=== PATIENT | male | born 1995 | race Caucasian/White ===

== ENCOUNTER 2017-07-03 13:42 | Emergency (ER) | payer OTHER ==
[2017-07-03 14:04] VITALS: BP 118/66; PULSE 94; TEMP 98; BMI 33.2
--- NOTE | 2017-07-03 15:07 | PDOC ---
History of Present Illness - General Chief Complaint: Choking Sensation Stated Complaint: CHOKING Time Seen by Provider: 07/03/17 14:33 Past History - Past Medical History Allergies/Adverse Reactions: Allergies Allergy/AdvReac Type Severity Reaction Status Date / Time No Known Allergies Allergy Verified 07/03/17 13:58 Home Medications: Ambulatory Orders Calcium Carbonate [Calcium] 600 mg PO DAILY 02/07/14 Cholecalciferol (Vitamin D3) [Vitamin D -] 2,000 unit PO DAILY 02/07/14 Diazepam Rectal Gel [Diastat Rectal Gel -] 20 mg [place] ONCE PRN 02/07/14 Lacosamide [Vimpat -] 200 mg PO BID 02/07/14 Levetiracetam 900 mg PO BID 02/07/14 Levothyroxine [Synthroid -] 88 mcg PO DAILY 02/07/14 Pyridoxine HCl 100 mg PO DAILY 02/07/14 Acetaminophen [Tylenol] 650 mg PO PRN 06/19/14 Clonazepam 2 mg PO DAILY PRN 06/19/14 Lacosamide [Vimpat -] 100 mg PO BID 06/19/14 Loperamide HCl [Loperamide] 2 mg PO Q4H PRN 06/19/14 Mineral Oil/Hydrophil Petrolat [Aquaphor Ointment] 1 applic TP PRN 06/19/14 Nystatin Cream [Mycostatin] 1 applic TP BID 06/19/14 Pedi Multivit #22/Vit D3/Vit K [Multivitamins Chewables Tablet] 1 each PO DAILY 06/19/14 Talc/Cellulos/Chloroxy/Aldioxa [Zeasorb Powder] 1 applic TP BID 06/19/14 Levetiracetam 100 mg PO ASDIR 07/03/17 Loperamide HCl [Loperamide] 2 mg PO ASDIR 07/03/17 Perampanel [Fycompa] 4 mg PO ASDIR 07/03/17 Pyridoxine HCl 100 mg PO ASDIR 07/03/17 COPD: No GI Disorders: Yes (gerd) Psychiatric Problems: Yes (AGGRESSION.) Seizures: Yes Thyroid Disease: Yes (thyroid) Other medical history: TBI. ENCEPHALITIS. - Surgical History Neurologic Surgery: Yes (VNS PLACED 2008) - Immunization History Immunization Up to Date: Yes - Suicide/Smoking/Psychosocial Hx Smoking History: Never smoked Have you smoked in the past 12 months: No Hx Alcohol Use: No Drug/Substance Use Hx: No Substance Use Type: None *Physical Exam - Vital Signs Last Vital Signs Temp Pulse Resp BP Pulse Ox 98 F 94 H 18 118/66 98 07/03/17 13:58 07/03/17 13:58 07/03/17 13:58 07/03/17 13:58 07/03/17 13:58 ED Treatment Course - RADIOLOGY Radiology Studies Ordered: Category Date Time Status CHEST PA & LAT [RAD] Stat Radiology 07/03/17 14:12 Ordered *DC/Admit/Observation/Transfer Diagnosis at time of Disposition: Choking due to food (regurgitated) Qualifiers: Encounter type: initial encounter Qualified Code(s): T17.320A - Food in larynx causing asphyxiation, initial encounter - Discharge Dispostion Disposition: HOME Condition at time of disposition: Good Admit: No - Referrals Referrals: Hernan Mckinney MD [Staff Physician] - - Patient Instructions Printed Discharge Instructions: DI for Choking Episode Additional Instructions: Juliano had a choking episode. Please have him follow with either a speech pathologist or a GI doctor to have his swallowing evaluated. A GI consult has been provided. Please monitor him while eating. His x-ray was negative for residual food or aspiration. Return to the ED if he develops fevers, chills, SOB, cough or any changes in his symptoms. - Post Discharge Activity
== END 2017-07-03 15:46 | disposition home or self-care (01) ==
LOC: JERFT 13:42
DX: T17.320A Food in larynx causing asphyxiation, initial encounter (principal); X58.XXXA Exposure to other specified factors, initial encounter; Y93.89 Activity, other specified; Y92.118 Other place in children's home and orphanage as the place of occurrence of the external cause; Y99.8 Other external cause status; K21.9 Gastro-esophageal reflux disease without esophagitis; G40.909 Epilepsy, unspecified, not intractable, without status epilepticus; E03.9 Hypothyroidism, unspecified; Z87.820 Personal history of traumatic brain injury; F91.1 Conduct disorder, childhood-onset type
CPT/HCPCS: 71020-TC; 99281-25

== ENCOUNTER 2017-09-02 15:48 | Emergency (ER) | payer OTHER ==
[2017-09-02 16:22] VITALS: BP 144/75; PULSE 100; TEMP 99.2; BMI 32.6
--- NOTE | 2017-09-02 16:55 | PDOC ---
Attending Attestation - Resident Resident Name: Amaya Rubiogillian - ED Attending Attestation I have performed the following: I have examined & evaluated the patient, The case was reviewed & discussed with the resident, I agree w/resident's findings & plan, Exceptions are as noted - HPI HPI: 09/02/17 16:55 21y M hx of seizures s/p TBI, encephalitis, hypothyroidism, presents with complaint of recurrent seizures had 7 seizrues today and got a dose of klonapin at 11:40.seizures lasting from 20 sec to 2 minutes, and states he was more spacey - non focalneuro exam. pt does track me when i say his name, but per the aid with him, he has less attention span than usual. the aid who came on at 3pm has not seen him seize yet. will r/o organic cause of siezures including occult infection, metabolic dernagement, ct head will observe here whie we work him up will discuss with his neurolgist regarding dispo and possible med changes - Physicial Exam PE: 09/05/17 12:10 see above - Medical Decision Making after discussion with neurologist and PMD, plan was to observe the pt in the ED as it seems he is back to baseline mental status - if he has further seizures will transfer him to [facility] under care of his neurologist. if neg, will hvae pt fu with neuro as outpatient. suspect his delayed return to baseline menal status was due to the benzos on board he seems bcak to baseline on evaluation here in the ED. Heart Score/ECG Review - ECG Impressions Comment:: 09/02/17 18:03 Twelve-lead EKG was performed and reviewed by me. There is normal sinus rhythm with a normal rate. rate of 86 nos t changes suggestive of mi RSR in V2
[2017-09-02] MEDS ORDERED: DIAZEPAM ACUDIAL 12.5-15-20 20 MG KIT RC PRN (17:02)
[2017-09-02] MEDS ORDERED: levETIRAcetam 500 MG/5 ML ORAL SOLUTION (UNIT-DOSE CUPS) PO SCH (17:30)
[2017-09-02] MEDS ORDERED: LACOSAMIDE 50 MG TABLET PO SCH (17:30)
--- NOTE | 2017-09-02 17:51 | PDOC ---
History of Present Illness - General Chief Complaint: Seizure Stated Complaint: SEIZURE Time Seen by Provider: 09/02/17 16:54 - History of Present Illness Initial Comments: Pt is a 21yo M with PMHx of Epilepsy and Cognitive Deficits (nonverbal) who presented from [facility] due to breakthrough seizures. History was obtained from the chart, aid, and PCP. Patient had 9 seizures since 5am, between 20 seconds - 2 minutes. His vagus nerve stimulator was adjusted, and a dose of Klonopin was given, but the seizures persisted. Last seizure was 2.5 hrs ago. Since the seizures stopped, the patient appears more tired, not as interactive as baseline. Does not appear to be in pain, no vomiting, no diarrhea , no runny nose, no asymmetric changes. As per PCP, seizures were well controlled until a couple of months ago, frequency increased. Anti-epileptic meds recently adjusted 1 month ago. Past History - Past Medical History Allergies/Adverse Reactions: Allergies Allergy/AdvReac Type Severity Reaction Status Date / Time No Known Allergies Allergy Verified 09/02/17 16:21 Home Medications: Ambulatory Orders Calcium Carbonate [Calcium] 600 mg PO DAILY 02/07/14 Cholecalciferol (Vitamin D3) [Vitamin D -] 2,000 unit PO DAILY 02/07/14 Diazepam Rectal Gel [Diastat Rectal Gel -] 20 mg AL ONCE PRN 02/07/14 Lacosamide [Vimpat -] 200 mg PO BID 02/07/14 Levetiracetam 900 mg PO BID 02/07/14 Levothyroxine [Synthroid -] 88 mcg PO DAILY 02/07/14 Pyridoxine HCl (Vitamin B6) [Pyridoxine HCl] 100 mg PO DAILY 02/07/14 Acetaminophen [Tylenol] 650 mg PO PRN 06/19/14 Clonazepam 2 mg PO DAILY PRN 06/19/14 Lacosamide [Vimpat -] 100 mg PO BID 06/19/14 Loperamide HCl [Loperamide] 2 mg PO Q4H PRN 06/19/14 Mineral Oil/Hydrophil Petrolat [Aquaphor Ointment] 1 applic TP PRN 06/19/14 Nystatin Cream [Mycostatin] 1 applic TP BID 06/19/14 Pedi Multivit #22/Vit D3/Vit K [Multivitamins Chewables Tablet] 1 each PO DAILY 06/19/14 Talc/Cellulos/Chloroxy/Aldioxa [Zeasorb Powder] 1 applic TP BID 06/19/14 Levetiracetam 100 mg PO ASDIR 07/03/17 Loperamide HCl [Loperamide] 2 mg PO ASDIR 07/03/17 Perampanel [Fycompa] 4 mg PO ASDIR 07/03/17 Pyridoxine HCl (Vitamin B6) [Pyridoxine HCl] 100 mg PO ASDIR 07/03/17 COPD: No GI Disorders: Yes (gerd) Psychiatric Problems: Yes (AGGRESSION.) Seizures: Yes Thyroid Disease: Yes (thyroid) - Surgical History Neurologic Surgery: Yes (VNS PLACED 2008) - Immunization History Immunization Up to Date: Yes - Suicide/Smoking/Psychosocial Hx Smoking History: Never smoked Have you smoked in the past 12 months: No Information on smoking cessation initiated: No Hx Alcohol Use: No Drug/Substance Use Hx: No Substance Use Type: None *Physical Exam - Vital Signs Last Vital Signs Temp Pulse Resp BP Pulse Ox 99.2 F 100 H 18 144/75 100 09/02/17 15:48 09/02/17 15:48 09/02/17 15:48 09/02/17 15:48 09/02/17 15:48 - Physical Exam Comments: GEN: Awake, alert, but appears sleepy, nonverbal, but in no acute distress HEENT: NCAT, PERRLA, EOMi CV: S1, S2, RRR LUNG: difficult to hear due to non-cooperation, but grossly clear ABD: Soft, NT, ND, normoactive MSK: No edema, no erythema, rashes on arms are not new ED Treatment Course - LABORATORY CBC & Chemistry Diagram: 09/02/17 18:00 09/02/17 18:00 - RADIOLOGY Radiology Studies Ordered: Category Date Time Status HEAD CT WITHOUT CONTRAST [CT] Stat CT Scan 09/02/17 16:29 Ordered CHEST X-RAY PORTABLE* [RAD] Stat Radiology 09/02/17 16:29 Ordered Medical Decision Making - Medical Decision Making 09/02/17 17:54 Mr. Carter is a 21yo M with hx of epilepsy who presented with breakthrough seizures of unknown origin. No focal cause jayshree. Though patient is afebrile, cannot rule out underlying infectious cause. Will order CBC, CMP, UA, CXR, EKG. Will also order Head CT to r/o intracranial pathology. Change in mental status could be due to prolonged post-ictal state vs post benzodiazepine change vs infectious. 09/02/17 18:00 Spoke with SWETA Villa who stated that the patient should be worked up and monitored for more breakthrough seizures. If workup is negative and patient stops seizing, can send back to [facility]. If patient continues to seize regularly, will give IV Ativan and transfer to [place] to be under the care of Dr. Salcido. Inter-hospital transfer center number is [phone]. Dr Carranza (PCP at [facility]) [phone]. SWETA Villa for Dr. Salcido (Patient's Neurologist) [phone] 09/02/17 18:15 Patient had 15 second seizure, witnessed by aid and nurse Savana. Head turned to left, tremors on L arm and leg. Had not received 5:30 antiepileptics. Will give 5:30 meds and continue to monitor *DC/Admit/Observation/Transfer Diagnosis at time of Disposition: Seizure disorder - Referrals - Patient Instructions - Post Discharge Activity
[2017-09-02] MEDS ORDERED: LACOSAMIDE 50 MG TABLET PO ONE (18:25)
[2017-09-02 18:42] LABS: BASO % 0.5 % (0-2.0); EOS % 0.4 % (0-4.5); HEMATOCRIT 45.3 % (35.4-49); HEMOGLOBIN 14.8 GM/dL (11.7-16.9); LYMPH % 20.6 % (8-40); MCH 28.3 pg (25.7-33.7); MCHC 32.7 g/dl (32.0-35.9); MEAN CELL VOLUME 86.4 fl (80-96); MEAN PLT VOLUME 10.3 fl (7.5-11.1); MONO % 9.4 % (3.8-10.2); NEUT % 69.1 % (42.8-82.8); PLATELET COUNT 206 K/MM3 (134-434); RBC 5.24 M/mm3 (4.00-5.60); RDW 13.1 % (11.9-15.9); WHITE BLOOD COUNT 13.6 K/mm3 (4.0-10.0)
[2017-09-02 20:11] LABS: ALBUMIN 4.3 g/dl (3.4-5.0); ANION GAP 8 (8-16); BLOOD UREA NITROGEN 8 mg/dL (7-18); CALCIUM 9.2 mg/dL (8.5-10.1); CHLORIDE 103 mmol/L (98-107); CO2 30 mmol/L (21-32); CREATININE 0.7 mg/dL (0.7-1.3); GLUCOSE,RANDOM 80 mg/dL (74-106); SGPT/ALT 46 U/L (12-78); SODIUM 141 mmol/L (136-145)
[2017-09-02 20:12] LABS: ALK PHOS 110 U/L (45-117); TOT PROT 7.9 g/dl (6.4-8.2)
[2017-09-02 20:40] LABS: SGOT/AST 32 U/L (15-37)
--- NOTE | 2017-09-02 21:04 | PDOC ---
*Physical Exam - Vital Signs Last Vital Signs Temp Pulse Resp BP Pulse Ox 99.2 F 100 H 18 144/75 100 09/02/17 15:48 09/02/17 15:48 09/02/17 15:48 09/02/17 15:48 09/02/17 15:48 ED Treatment Course - LABORATORY CBC & Chemistry Diagram: 09/02/17 18:00 09/02/17 18:00 - ADDITIONAL ORDERS Additional order review: Laboratory Results 09/02/17 18:00 Sodium 141 Potassium 4.0 Chloride 103 Carbon Dioxide 30 Anion Gap 8 BUN 8 D Creatinine 0.7 Creat Clearance w eGFR > 60 Random Glucose 80 Calcium 9.2 Total Bilirubin 1.0 D AST 32 ALT 46 Alkaline Phosphatase 110 D Total Protein 7.9 Albumin 4.3 09/02/17 18:00 RBC 5.24 MCV 86.4 MCHC 32.7 RDW 13.1 MPV 10.3 Neutrophils % 69.1 D Lymphocytes % 20.6 D Monocytes % 9.4 Eosinophils % 0.4 D Basophils % 0.5 Medical Decision Making - Medical Decision Making Patient signed out to me pending labs, head CT, and CXR read. Labs all WNL with the exception of slight leukocytosis and CXR not demonstrating infection. Head CT not showing new or acute intracranial process. Will DC patient back to facility with instructions to continue using medication. 09/02/17 21:03 *DC/Admit/Observation/Transfer Diagnosis at time of Disposition: Seizure disorder - Discharge Dispostion Disposition: INTERMEDIATE FACILITY Condition at time of disposition: Improved Admit: No - Referrals - Patient Instructions Additional Instructions: You did not have anymore seizures for 4 hours under our observation. Your chest X ray and head CT did not show any issues or infection. Your labs were also unconcerning. Please take your anti seizure medications as instructed. Please return to the ED if you have any new seizures or other concerning symptoms. - Post Discharge Activity
--- NOTE | 2017-09-03 10:57 | EKG ---
Test Reason : Blood Pressure : / mmHG Vent. Rate : 086 BPM Atrial Rate : 086 BPM P-R Int : 142 ms QRS Dur : 094 ms QT Int : 374 ms P-R-T Axes : 079 063 057 degrees QTc Int : 447 ms NORMAL SINUS RHYTHM POSSIBLE LEFT ATRIAL ENLARGEMENT BORDERLINE ECG WHEN COMPARED WITH ECG OF 19-JUN-2014 19:57, NO SIGNIFICANT CHANGE WAS FOUND Confirmed by SMITH GOOD, BRANDY ([id number]) on 09/03/2017 10:57:06 AM Referred By: Confirmed By:BRANDY MTZ MD
== END 2017-09-03 01:55 ==
LOC: JER 15:48
DX: G40.909 Epilepsy, unspecified, not intractable, without status epilepticus (principal); R41.89 Other symptoms and signs involving cognitive functions and awareness; F99 Mental disorder, not otherwise specified; K21.9 Gastro-esophageal reflux disease without esophagitis; E07.9 Disorder of thyroid, unspecified
CPT/HCPCS: 36415; 70450-TC; 71045-TC; 80053; 85025; 93005; 93010; 99281-25

== ENCOUNTER 2019-10-10 12:54 | Emergency (ER) | payer OTHER ==
[2019-10-10 13:41] VITALS: BP 115/43; PULSE 80; TEMP 98.2; BMI 27.3
--- NOTE | 2019-10-10 14:05 | PDOC ---
History of Present Illness - General Chief Complaint: Rash Stated Complaint: RASH Time Seen by Provider: 10/10/19 13:43 History Source: Retirement Records ([facility]), Primary Care Provider Exam Limitations: No Limitations - History of Present Illness Initial Comments: 10/10/19 14:05 HISTORY OF PRESENT ILLNESS: 24-year-old male resident at [facility] who is been fully vaccinated who was sent by facility for evaluation of rash to the trunk. Multiple vaccinated residents at the facility have had positive PCR's for varicella. Facility physician is requesting PCR for varicella be collected and patient to be sent back to facility for monitoring. No recent travel or sick contacts. 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 No apparent distress , no intoxication. Lymphatic: No adenopathy, tenderness. Musculoskeletal/Extremities: Normal inspection. FROM of all extremities, normal capillary refill. Pelvis Stable. No CVA tenderness. No tenderness to extremities, pedal edema, swelling, erythema or deformity. Integumentary: Vesicular rash presents to the midline chest and back. Nondraining lesions present. Appearance is consistent with active varicella infection. Neurologic: licsw II-XII intact. Fully oriented, alert. Appropriate mood/affect. Motor strength 5/5. No appreciable EOM palsy, facial droop or sensory deficit. Past History - Past Medical History Allergies/Adverse Reactions: Allergies Allergy/AdvReac Type Severity Reaction Status Date / Time No Known Allergies Allergy Verified 10/10/19 13:39 Home Medications: Ambulatory Orders Calcium Carbonate [Calcium] 600 mg PO DAILY 02/07/14 Cholecalciferol (Vitamin D3) [Vitamin D -] 2,000 unit PO DAILY 02/07/14 Diazepam Rectal Gel [Diastat Rectal Gel -] 20 mg [place] ONCE PRN 02/07/14 Lacosamide [Vimpat -] 200 mg PO BID 02/07/14 Levetiracetam 2,000 mg PO BID 02/07/14 Levothyroxine [Synthroid -] 88 mcg PO DAILY 02/07/14 Pyridoxine HCl (Vitamin B6) [Pyridoxine HCl] 100 mg PO DAILY 02/07/14 Acetaminophen [Tylenol] 650 mg PO PRN PRN 06/19/14 Clonazepam 2 mg SL DAILY PRN 06/19/14 Lacosamide [Vimpat -] 100 mg PO BID 06/19/14 Pedi Multivit #22/Vit D3/Vit K [Multivitamins Chewables Tablet] 1 each PO DAILY 06/19/14 Perampanel [Fycompa] 4 mg PO HS 07/03/17 COPD: No GI Disorders: Yes (gerd) Psychiatric Problems: Yes (AGGRESSION.) Seizures: Yes Thyroid Disease: Yes (thyroid) - Surgical History Neurologic Surgery: Yes (VNS PLACED 2008) - Immunization History Immunization Up to Date: Yes - Psycho Social/Smoking Cessation Hx Smoking History: Never smoked Have you smoked in the past 12 months: No Hx Alcohol Use: No Drug/Substance Use Hx: No Substance Use Type: None *Physical Exam - Vital Signs Last Vital Signs Temp Pulse Resp BP Pulse Ox 98.2 F 80 20 115/43 L 99 10/10/19 13:39 10/10/19 13:39 10/10/19 13:39 10/10/19 13:39 10/10/19 13:39 Medical Decision Making - Medical Decision Making 10/10/19 13:46 A/P: 24-year-old autistic male for evaluation of active varicella infection Given multiple sick contacts with active varicella infection despite immunization and appearance of rash this is likely active varicella infection. Case has been discussed with Dr. Craranza who requests that varicella PCR be collected and child can return to facility for continued treatment for presumed varicella infection. Antiviral therapy was discussed with the primary doctor who agrees that this would not be indicated for this patient. Varicella PCR Discharge to [facility] 10/10/19 13:46 Discharge - Discharge Information Problems reviewed: Yes Clinical Impression/Diagnosis: Varicella exposure Condition: Stable Disposition: HOME - Admission No - Follow up/Referral CallBack Reminder: results - Patient Discharge Instructions Additional Instructions: Results of PCR will take multiple days as this is a send out test. Doctor Carranza is aware of the case and will continue treatment. No additional treatment here is indicated. Return to emergency department for any new or worsening symptoms. Thank you very much for choosing us to provide this child's emergent healthcare needs. - Post Discharge Activity
== END 2019-10-10 14:13 | disposition home or self-care (01) ==
LOC: JERFT 12:54
DX: B01.9 Varicella without complication (principal); G40.909 Epilepsy, unspecified, not intractable, without status epilepticus; K21.9 Gastro-esophageal reflux disease without esophagitis; E03.9 Hypothyroidism, unspecified; F91.1 Conduct disorder, childhood-onset type; Z87.820 Personal history of traumatic brain injury; Z96.82 Presence of neurostimulator
CPT/HCPCS: 36415; 86787; 99282-25

== ENCOUNTER 2020-04-19 13:35 | Emergency (ER) | payer OTHER ==
[2020-04-19 13:50] VITALS: TEMP 98.6; BMI 33.9
[2020-04-19 15:55] LABS: BASO % 0.7 % (0-2.0); EOS % 4.7 % (0-4.5); HEMATOCRIT 43.9 % (35.4-49); HEMOGLOBIN 14.4 GM/dL (11.7-16.9); LYMPH % 24.7 % (8-40); MCH 28.5 pg (25.7-33.7); MCHC 32.7 g/dl (32.0-35.9); MEAN CELL VOLUME 87.1 fl (80-96); MEAN PLT VOLUME 10.4 fl (7.5-11.1); MONO % 9.4 % (3.8-10.2); NEUT % 60.5 % (42.8-82.8); PLATELET COUNT 196 K/MM3 (134-434); RBC 5.04 M/mm3 (4.00-5.60); RDW 13.3 % (11.9-15.9); WHITE BLOOD COUNT 10.2 K/mm3 (4.0-10.0)
--- NOTE | 2020-04-19 16:07 | EKG ---
Test Reason : Blood Pressure : / mmHG Vent. Rate : 076 BPM Atrial Rate : 076 BPM P-R Int : 142 ms QRS Dur : 088 ms QT Int : 380 ms P-R-T Axes : 071 068 059 degrees QTc Int : 427 ms NORMAL SINUS RHYTHM NORMAL ECG WHEN COMPARED WITH ECG OF 02-SEP-2017 17:30, NO SIGNIFICANT CHANGE WAS FOUND Confirmed by MD GAGE MOYSES ([id number]) on 04/19/2020 4:07:21 PM Referred By: Confirmed By:HUMBERTO GAGE MD
--- NOTE | 2020-04-19 16:08 | PDOC ---
History of Present Illness - General Chief Complaint: Seizure Stated Complaint: Seizure Time Seen by Provider: 04/19/20 14:29 - History of Present Illness Initial Comments: HPI 24 yo M with PMH of cognitive deficits (non-verbal at baseline), epilepsy, GERD, and thyroid disease presenting from [facility] after pt had 4 seizure episodes this mornin) 7:30 AM - 45 s; subsided on own 2) 9:25 AM - 3 min 20 s - valium 20 mg IL administered @9:30 AM to break seizure 3) 10:50 AM - 1 min 20 s 4) 12:25 PM - 3 min - diastat administered Pt's seizures involved jerking movements of upper and lower extremities and twitching of mouth; pt known to sometimes become cyanotic during seizures. During the episodes today, he developed intermittent cyanosis and O2 was given. Nursing staff at [facility] reports that pt usually does not have any seizures after valium administration but today he had two more seizures. Pt also with vagal nerve stimulator on L upper back and responsive neurostimulator in R parietal. Pt has not had any fevers, chills, cough, wheezing, abdominal pain, weakness, nausea, vomiting, diarrhea, or constipation. According to [facility] nursing staff, at baseline pt is non-verbal, sitting upright, playing puzzles, active, and follows some commands. Pt is near his baseline currently, although not as active after anti-seizure medication administration at [facility]. He has had no further seizures while in the ED. PMHX: as in HPI PSHX: see below Meds: as per pt's chart from [facility] Allergies: nkda Tob:none Etoh: none Rec drugs: none PCP: Dr. Nancie Carranza; seen by neurologist - Dr. Gilman @ [facility] ([phone]) ROS unable to retrieve current ROS as pt is non-verbal at baseline PE GENERAL: Awake, alert, nonverbal in no acute distress HEAD: No signs of trauma, normocephalic, atraumatic EYES: PERRLA, EOMI, sclera anicteric, conjunctiva clear ENT: Auricles normal inspection, oropharynx clear without exudates. Moist mucosa NECK: Normal ROM, supple, no lymphadenopathy, JVD, or masses LUNGS: No distress, speaks full sentences, clear to auscultation bilaterally HEART: Regular rate and rhythm, normal S1 and S2, no murmurs, rubs or gallops, peripheral pulses normal and equal bilaterally. ABDOMEN: Soft, nondisted, normoactive bowel sounds. EXTREMITIES : Normal inspection, moving all extremities equally and spontaneously, no edema. NEUROLOGICAL: Pt non-verbal at baseline, able to ambulate with assistance; pt not following commands; no tonic-clonic movements SKIN: Warm, Dry, normal turgor, no rashes or lesions noted 04/19/20 15:40 Past History - Medical History Allergies/Adverse Reactions: Allergies Allergy/AdvReac Type Severity Reaction Status Date / Time No Known Allergies Allergy Verified 10/10/19 13:39 Home Medications: Ambulatory Orders Cholecalciferol (Vitamin D3) [Vitamin D -] 2,000 unit PO DAILY 02/07/14 Diazepam Rectal Gel [Diastat Rectal Gel -] 20 mg [place] ONCE PRN 02/07/14 Lacosamide [Vimpat -] 200 mg PO BID 02/07/14 Levetiracetam 1,000 mg PO BID 02/07/14 Levothyroxine [Synthroid -] 88 mcg PO DAILY 02/07/14 Pyridoxine HCl (Vitamin B6) [Pyridoxine HCl] 100 mg PO DAILY 02/07/14 Acetaminophen [Tylenol] 650 mg PO PRN PRN 06/19/14 Clonazepam 2 mg SL DAILY PRN 06/19/14 Lacosamide [Vimpat -] 100 mg PO BID 06/19/14 Pedi Multivit #22/Vit D3/Vit K [Multivitamins Chewables Tablet] 1 each PO DAILY 06/19/14 Perampanel [Fycompa] 4 mg PO HS 07/03/17 Bisacodyl [Laxative] 20 mg PO DAILY PRN 04/19/20 Loperamide HCl [Loperamide] 2 mg PO QID PRN 04/19/20 COPD: No GI Disorders: Yes (gerd) Psychiatric Problems: Yes (AGGRESSION.) Seizures: Yes Thyroid Disease: Yes (thyroid) - Surgical History Neurologic Surgery: Yes (VNS PLACED 2008) - Immunization History Immunization Up to Date: Yes - Psycho-Social/Smoking History Smoking History: Unknown if ever smoked Have you smoked in the past 12 months: No - Substance Abuse Hx (Audit-C & DAST Scrn) How often the patient has a drink containing alcohol: Never Score: In Men: 4 or > Positive; In Women: 3 or > Positive: 0 Screen Result (Pos requires Nsg. Audit-10AR): Negative In the last yr the pt used illegal drug/Rx for NonMed reason: No Score: Yes response is considered Positive: 0 Screen Result (Positive result requires Nsg. DAST-10): Negative *Physical Exam - Vital Signs Last Vital Signs Temp Pulse Resp BP Pulse Ox 98.6 F 80 19 111/68 98 04/19/20 13:41 04/19/20 13:41 04/19/20 13:41 04/19/20 13:41 04/19/20 13:41 ED Treatment Course - LABORATORY CBC & Chemistry Diagram: 04/19/20 15:10 04/19/20 15:10 Medical Decision Making - Medical Decision Making MDM 24 yo M with PMH of cognitive deficits (non-verbal at baseline), epilepsy, GERD, and thyroid disease presenting from [facility] after pt had 4 seizure episodes this morning (s/p valium and diastat administration). DDX including but not limited to: seizures W/U: -CMP, Mg, Phos -CT head -Could not get in touch with pt's neurologist (Dr. Chantal Gilman @ [facility]). Spoke to neurologist inclusion paraeducator (Dr. Bardales) who advised to give dose of keppra 1000 mg; and pt could be discharged as long as he is back to his baseline. TX: - keppra 1000 mg - will reasses; anticipate discharge back to [facility] 04/19/20 16:10 - CT negative for acute intracranial pathology - pt has returned to his baseline - Patient stable for discharge. Informed of all lab and imaging results. - Given follow up instructions and strict return precautions. - Patient expressed understanding and agree to plan. 04/19/20 17:46 Discharge - Discharge Information Problems reviewed: Yes Clinical Impression/Diagnosis: Seizure Condition: Improved - Admission No - Follow up/Referral - Patient Discharge Instructions Patient Printed Discharge Instructions: DI for Seizure Disorder -- Adult, DI fo r Seizure Disorder -- Child Additional Instructions: You were here after recurrent seizures today at [facility]. You were given 1 dose of keppra 1000 mg. You did not have any seizures in the ED. Your labs showed no significant abnormalities. CT scan of the head did not show any new significant findings. Please return to the ED if recurrent seizures not responding to medication management occurs again or if you go into status epilepticus (continuous seizures without return to baseline). - Post Discharge Activity
[2020-04-19] MEDS ORDERED: levETIRAcetam 500 MG/5 ML INJECTION VIAL IVPB ONE ×2 (16:14→16:21)
[2020-04-19 16:31] LABS: ALBUMIN 4.2 g/dl (3.4-5.0); BILIRUBIN,TOTAL 0.5 mg/dL (0.2-1); BLOOD UREA NITROGEN 11.9 mg/dL (7-18); CALCIUM 9.5 mg/dL (8.5-10.1); CREATININE 0.9 mg/dL (0.55-1.3); MAGNESIUM 2.5 mg/dL (1.8-2.4); PHOSPHOROUS 3.6 mg/dL (2.5-4.9); POTASSIUM 4.2 mmol/L (3.5-5.1); TOT PROT 7.7 g/dl (6.4-8.2)
--- NOTE | 2020-04-19 16:32 | PDOC ---
Documentation entered by Eliana Dennis SCRIBE, acting as scribe for Betito Barajas MD. Betito Barajas MD: This documentation has been prepared by the sgibeSonny Ana, SCRIBE, under my direction and personally reviewed by me in its entirety. I confirm that the documentation accurately reflects all work, treatment, procedures, and medical decision making performed by me. 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 Per [facility] staff , patient has not had weakness, fevers, chills, nausea, vomiting, cough, wheezing, abdominal pain, diarrhea, constipation, or any other related symptoms. Allergies: NKDA HPI is limited to the patient being non-verbal at baseline. - Physicial Exam PE: 04/19/20 15:49 See resident exam. - Medical Decision Making 04/19/20 16:32 24 M with seizure disorder presenting with breakthrough seizures. - Labs - Discuss w/ neuro Labs and imaging unremarkable Pt seen by Dr. Bardales, recommends keppra load and increasing keppra dosage Pt is well appearing, with normal vitals. Clinically stable for DC at this time. I discussed the physical exam findings, ancillary test results and final diagnoses with the patients family. I answered all of their questions. The family was satisfied with the care received and felt comfortable with the discharge plan and treatment plan. They agree to follow up with the primary care physician within 24-72 hours. Discharge - Discharge Information Problems reviewed: Yes Clinical Impression/Diagnosis: Seizure Condition: Improved Disposition: DETENTION FACILITY - Follow up/Referral - Patient Discharge Instructions Patient Printed Discharge Instructions: DI for Seizure Disorder -- Adult, DI for Seizure Disorder -- Child Additional Instructions: You were here after recurrent seizures today at [facility]. You were given 1 dose of keppra 1000 mg. You did not have any seizures in the ED. Your labs showed no significant abnormalities. CT scan of the head did not show any new significant findings. Please return to the ED if recurrent seizures not responding to medication management occurs again or if you go into status epilepticus (continuous seizures without return to baseline). - Post Discharge Activity
[2020-04-19 18:20] VITALS: BP 123/61; PULSE 82
--- NOTE | 2020-04-20 11:19 | CON.NEURO ---
Consult - Alcohol/Substance Use Hx Alcohol Use: No - Smoking History Smoking history: Unknown if ever smoked Have you smoked in the past 12 months: No Home Medications - Allergies Allergies/Adverse Reactions: Allergies Allergy/AdvReac Type Severity Reaction Status Date / Time No Known Allergies Allergy Verified 10/10/19 13:39 - Home Medications Home Medications: Ambulatory Orders Cholecalciferol (Vitamin D3) [Vitamin D -] 2,000 unit PO DAILY 02/07/14 Diazepam Rectal Gel [Diastat Rectal Gel -] 20 mg MD ONCE PRN 02/07/14 Lacosamide [Vimpat -] 200 mg PO BID 02/07/14 Levetiracetam 1,000 mg PO BID 02/07/14 Levothyroxine [Synthroid -] 88 mcg PO DAILY 02/07/14 Pyridoxine HCl (Vitamin B6) [Pyridoxine HCl] 100 mg PO DAILY 02/07/14 Acetaminophen [Tylenol] 650 mg PO PRN PRN 06/19/14 Clonazepam 2 mg SL DAILY PRN 06/19/14 Lacosamide [Vimpat -] 100 mg PO BID 06/19/14 Pedi Multivit #22/Vit D3/Vit K [Multivitamins Chewables Tablet] 1 each PO DAILY 06/19/14 Perampanel [Fycompa] 4 mg PO HS 07/03/17 Bisacodyl [Laxative] 20 mg PO DAILY PRN 04/19/20 Loperamide HCl [Loperamide] 2 mg PO QID PRN 04/19/20 Physical Exam-Neuro Vital Signs: Vital Signs Temperature 98.6 F 04/19/20 13:41 Pulse Rate 82 04/19/20 18:19 Respiratory Rate 18 04/19/20 18:19 Blood Pressure 123/61 04/19/20 18:19 O2 Sat by Pulse Oximetry (%) 99 04/19/20 18:19 Labs: CBC, BMP 04/19/20 15:10 04/19/20 15:10 Assessment/Plan cc multiple seizure HPI 24 year old male history of cerebral palsy and non verbal at baseline. He had epilepsy, thyroid disease, GERD. He has four episode of seizure. Patient was given keppra nad was discharge on high dose of keppra . He has jerky motion of both upper and lower extremity. PMHX: as in HPI PSHX: see below Meds: as per pt's chart from [facility]( keppra, fycompa, lacosamide,clonazepam) Allergies: nkda Allergies/Adverse Reactions: Allergies Allergy/AdvReac Type Severity Reaction Status Date / Time No Known Allergies Allergy Verified 10/10/19 13:39 Home Medications: Cholecalciferol (Vitamin D3) [Vitamin D -] 2,000 unit PO DAILY 02/07/14 Diazepam Rectal Gel [Diastat Rectal Gel -] 20 mg MD ONCE PRN 02/07/14 Lacosamide [Vimpat -] 200 mg PO BID 02/07/14 Levetiracetam 1,000 mg PO BID 02/07/14 Levothyroxine [Synthroid -] 88 mcg PO DAILY 02/07/14 Pyridoxine HCl (Vitamin B6) [Pyridoxine HCl] 100 mg PO DAILY 02/07/14 Acetaminophen [Tylenol] 650 mg PO PRN PRN 06/19/14 Clonazepam 2 mg SL DAILY PRN 06/19/14 Lacosamide [Vimpat -] 100 mg PO BID 06/19/14 Pedi Multivit #22/Vit D3/Vit K [Multivitamins Chewables Tablet] 1 each PO DAILY 06/19/14 Perampanel [Fycompa] 4 mg PO HS 07/03/17 Bisacodyl [Laxative] 20 mg PO DAILY PRN 04/19/20 Loperamide HCl [Loperamide] 2 mg PO QID PRN 04/19/20 Neurological exam awake alert not following command, no neck stiffness, vss, afebrile moving all ext ct head u nremarkable Assesmsent 24 year old male history of cerebral palsy and non verbal at baseline. He had epilepsy, thyroid disease, GERD. He has VNS and cotical stimulator for seizure control PLAN He was given extra keppra and was advice to increase keppra 1500 and follow up with his neurologist Thanking you so much Jorge Bardales MD
--- NOTE | 2020-04-25 11:54 | EKG ---
Test Reason : Blood Pressure : / mmHG Vent. Rate : 076 BPM Atrial Rate : 076 BPM P-R Int : 142 ms QRS Dur : 088 ms QT Int : 380 ms P-R-T Axes : 071 068 059 degrees QTc Int : 427 ms NORMAL SINUS RHYTHM NORMAL ECG Confirmed by MD MARIELLA, ISIAH ([id number]) on 04/25/2020 11:54:05 AM Referred By: Confirmed By:ISIAH WOLFF MD
== END 2020-04-19 18:29 ==
LOC: JER 13:35
PROC: 3E033GC Introduction of Other Therapeutic Substance into Peripheral Vein, Percutaneous Approach (ICD-10-PCS; principal; 2020-04-19)
DX: G40.89 Other seizures (principal)
CPT/HCPCS: 36415; 70450-TC; 71045-TC-FY; 80053; 83735; 84100; 85025; 93005; 93010; 99285-25

== ENCOUNTER 2020-12-21 15:48 | Emergency (ER) | payer OTHER ==
[2020-12-21 15:59] VITALS: BMI 32.9
[2020-12-21] MEDS ORDERED: KETAMINE HCL 200 MG/20 ML VIAL IVPUSH ONE (18:16)
[2020-12-21 18:24] LABS: BASO % 0.5 % (0-2.0); EOS % 3.7 % (0-4.5); HEMATOCRIT 41.7 % (35.4-49); HEMOGLOBIN 13.9 GM/dL (11.7-16.9); LYMPH % 29.6 % (8-40); MCH 29.2 pg (25.7-33.7); MCHC 33.4 g/dl (32.0-35.9); MEAN CELL VOLUME 87.5 fl (80-96); MONO % 10.4 % (3.8-10.2); NEUT % 55.8 % (42.8-82.8); PLATELET COUNT 193 K/MM3 (134-434); RBC 4.76 M/mm3 (4.00-5.60); RDW 13.3 % (11.9-15.9); RETICULOCYTES 0.88 % (0.5-1.5); WHITE BLOOD COUNT 8.9 K/mm3 (4.0-10.0)
[2020-12-21 18:31] LABS: INR 1.01 (0.83-1.09); PROTHROMBIN TIME (PATIENT) 12.4 SEC (9.7-13.0)
[2020-12-21] MEDS ORDERED: KETAMINE HCL 200 MG/20 ML VIAL ONE (18:32)
[2020-12-21 18:33] LABS: ACTIVATED PTT 36.5 SECONDS (25.2-36.5)
[2020-12-21 18:41] LABS: ALBUMIN 4.1 g/dl (3.4-5.0); BLOOD UREA NITROGEN 15.9 mg/dL (7-18)
[2020-12-21 18:44] LABS: CREATININE 0.8 mg/dL (0.55-1.3)
[2020-12-21 18:46] LABS: BILIRUBIN,TOTAL 0.4 mg/dL (0.2-1); TOT PROT 7.5 g/dl (6.4-8.2)
[2020-12-21 22:20] VITALS: BP 117/58; PULSE 72; TEMP 98.5
== END 2020-12-21 22:38 | disposition home or self-care (01) ==
LOC: JER 15:48
PROC: 3E030FZ Introduction of Intracirculatory Anesthetic into Peripheral Vein, Open Approach (ICD-10-PCS; principal; 2020-12-21)
DX: K62.5 Hemorrhage of anus and rectum (principal)
CPT/HCPCS: 36415; 74174-TC; 80053; 82272; 82728; 83540; 83550; 85025; 85045; 85610; 85730; 86850; 86900; 86901; 93005; 93010; 99285-25

== ENCOUNTER 2021-02-13 16:02 | Emergency (ER) | payer OTHER ==
[2021-02-13 16:35] VITALS: BP 138/80; PULSE 70; TEMP 99; BMI 33.5
== END 2021-02-13 18:40 | disposition home or self-care (01) ==
LOC: JER 16:02
DX: S09.90XA Unspecified injury of head, initial encounter (principal)
CPT/HCPCS: 70450-TC; 99284-25

== ENCOUNTER 2021-06-06 12:24 | Emergency (ER) | payer OTHER ==
[2021-06-06 12:46] VITALS: BMI 33.8
[2021-06-06 13:59] VITALS: BP 106/68; PULSE 88
[2021-06-06 14:02] VITALS: TEMP 98.2
[2021-06-06 14:39] LABS: BASO % 0.6 % (0-2.0); EOS % 1.6 % (0-4.5); HEMATOCRIT 44.3 % (35.4-49); HEMOGLOBIN 14.8 GM/dL (11.7-16.9); LYMPH % 28.6 % (8-40); MCHC 33.4 g/dl (32.0-35.9); MEAN CELL VOLUME 86.9 fl (80-96); MEAN PLT VOLUME 9.7 fl (7.5-11.1); MONO % 10.3 % (3.8-10.2); NEUT % 58.9 % (42.8-82.8); PLATELET COUNT 199 10^3/uL (134-434); RDW 13.7 % (11.9-15.9); WHITE BLOOD COUNT 8.4 K/mm3 (4.0-10.0)
[2021-06-06 15:00] LABS: ALBUMIN 4.2 g/dl (3.4-5.0); BLOOD UREA NITROGEN 12.1 mg/dL (7-18); CALCIUM 9.6 mg/dL (8.5-10.1); MAGNESIUM 2.3 mg/dL (1.8-2.4)
[2021-06-06 15:04] LABS: CREATININE 0.9 mg/dL (0.55-1.3)
[2021-06-06 15:05] LABS: BILIRUBIN,TOTAL 0.6 mg/dL (0.2-1); TOT PROT 8.3 g/dl (6.4-8.2)
[2021-06-06] MEDS ORDERED: levETIRAcetam 500 MG/5 ML INJECTION VIAL IVPB ONE ×3 (15:17→16:13)
== END 2021-06-06 17:49 | disposition home or self-care (01) ==
LOC: JER 12:24
PROC: 3E033GC Introduction of Other Therapeutic Substance into Peripheral Vein, Percutaneous Approach (ICD-10-PCS; principal; 2021-06-06)
DX: R56.9 Unspecified convulsions (principal)
CPT/HCPCS: 36415; 80053; 80177; 83735; 85025; 99284-25